=== PATIENT | female | born 1965 | race Caucasian/White ===

== ENCOUNTER → 2016-12-24 | Outpatient (CLI) | payer MEDICAID ==
[~2016-12-24] MED LIST: INSU300I SQ
[2016-12-24 10:46] LABS: HEMATOCRIT 43.4 % (34.6-47.8); HEMOGLOBIN 14.4 g/dL (11.7-16.4); WHITE BLOOD COUNT 7.1 x10^3/uL (3.4-10)
[2016-12-24 10:57] LABS: ASPARTATE AMINO TRANSFERASE 31 U/L (15-37); BLOOD UREA NITROGEN 14 mg/dL (7-18)
== END | disposition home or self-care (01) ==
LOC: STAR 09:42
PROVIDERS: ATTEND Orthopaedic Surgery Orthopaedic Surgery of the Spine
DX: Z01.818 Encounter for other preprocedural examination (principal); M48.02 Spinal stenosis, cervical region; M53.82 Other specified dorsopathies, cervical region; E11.9 Type 2 diabetes mellitus without complications; K21.9 Gastro-esophageal reflux disease without esophagitis
CPT/HCPCS: 36415; 80053; 81003; 85025; 93005

== ENCOUNTER 2016-12-31 09:35 | Observation (INO) | payer MEDICAID ==
[~2016-12-31] VITALS: Ht 162.6 cm; Wt 85.0 kg
[2016-12-31] MEDS ORDERED: LACTATED RINGERS 1,000 ML IV SCH (09:56)
[2016-12-31] MEDS ORDERED: DIAZ2TAB PO (10:32)
[2016-12-31] MEDS ORDERED: OXYC-302 PO (10:32)
[2016-12-31] MEDS ORDERED: ALBU18HF INH (10:32)
[2016-12-31] MEDS ORDERED: NOVOLIN R (10:32)
[2016-12-31] MEDS ORDERED: MIDAZOLAM 1 MG/ML, 2ML ONE ×2 (11:07→15:54)
[2016-12-31] MEDS ORDERED: FENTANYL PF 100 MCG/2ML ONE ×3 (11:07→15:40)
[2016-12-31] MEDS ORDERED: BUPIVACAINE/PF 0.5% ONE (11:18)
[2016-12-31] MEDS ORDERED: TRANEXAMIC ACID 100 MG/ML, 10ML ONE (11:18)
[2016-12-31] MEDS ORDERED: LIDOCAINE/MPF 2%-EPI 1:200K, 20 ML ONE (11:19)
[2016-12-31] MEDS ORDERED: VANCOMYCIN 1,000 MG ONE (11:19)
[2016-12-31] MEDS ORDERED: EPINEPHRINE 1 MG/ML, 1ML ONE (11:19)
[2016-12-31] MEDS ORDERED: THROMBIN 5,000 UNIT VIAL TP ONE (11:19)
[2016-12-31] MEDS ORDERED: BACITRACIN 50,000 UNIT ONE (11:20)
[2016-12-31 11:36] LABS: PATH.CAST-FLAG NOT PRESENT; SPERM-FLAG NOT PRESENT; SRC-FLAG NOT PRESENT; XTAL-FLAG NOT PRESENT; YLC-FLAG NOT PRESENT
[2016-12-31] MEDS ORDERED: DEXAMETHASONE 4 MG/ML, 1ML ONE (12:21)
[2016-12-31] MEDS ORDERED: PROPOFOL 10 MG/ML, 50ML ONE (12:21)
[2016-12-31] MEDS ORDERED: SUCCINYLCHOLINE 20 MG/ML, 10ML ONE (12:21)
[2016-12-31] MEDS ORDERED: PROPOFOL 10 MG/ML, 20ML ONE (12:21)
[2016-12-31] MEDS ORDERED: CEFAZOLIN 1,000 MG ONE (12:21)
[2016-12-31] MEDS ORDERED: ONDANSETRON 2MG/ML, 2ML ONE (12:21)
[2016-12-31] MEDS ORDERED: HYDROmorphone 1 MG/ML, 1ML ONE ×3 (13:16→15:40)
[2016-12-31] MEDS ORDERED: METOPROLOL 1 MG/ML, 5ML IV PRN (15:00)
[2016-12-31] MEDS ORDERED: MIDAZOLAM 1 MG/ML, 2ML IV PRN (15:00)
[2016-12-31] MEDS ORDERED: OXYcodone 5 MG/5 ML ORAL.SOL UDC PO PRN (15:00)
[2016-12-31] MEDS ORDERED: ALBUTEROL/IPRATROPIUM 2.5MG/0.5MG, 3 ML NPPB PRN (15:00)
[2016-12-31] MEDS ORDERED: MEPERIDINE/PF 25MG/0.5ML IVPush PRN (15:00)
[2016-12-31] MEDS ORDERED: ACETAMINOPHEN 325 MG TABLET PO PRN (15:00)
[2016-12-31] MEDS ORDERED: PROMETHAZINE 25 MG/ML, 1ML IV PRN (15:00)
[2016-12-31] MEDS ORDERED: hydrALAzine 20 MG/ML, 1ML IV PRN (15:00)
[2016-12-31] MEDS ORDERED: INSULIN SINGLE DOSE, ER SQ-INSULIN ONE (15:30)
[2016-12-31] MEDS ORDERED: TEMPLATE NON-FORMULARY MED. (Albuterol Sulfate (Ventolin Hfa) 90 MCG) INH SCH (15:30)
[2016-12-31] MEDS ORDERED: INSULIN GLARGINE HUM REC ANLOG 40 UNIT SQ SCH (15:30)
[2016-12-31] MEDS: FENTANYL PF 100 MCG/2ML IV PRN ×2 (15:42→15:50)
[2016-12-31] MEDS ORDERED: DIAZEPAM 5 MG/ML, 2ML IV PRN (16:00)
[2016-12-31] MEDS ORDERED: INSULIN REGULAR 100 UNITS/ML, 3ML VIAL IVPush ONE ×2 (16:00→17:00)
[2016-12-31] MEDS ORDERED: INSULIN SLIDING SCALE MC SCH (16:00)
[2016-12-31] MEDS: HYDROmorphone 1 MG/ML, 1ML IV PRN ×2 (16:00→16:30)
[2016-12-31] MEDS ORDERED: [UNRECOGNIZED DRUG - REMARK] MC SCH (16:00)
[2016-12-31] MEDS ORDERED: [UNRECOGNIZED DRUG - REMARK] MC SCH (16:17)
[2016-12-31] MEDS ORDERED: INSULIN REGULAR 100 UNITS/ML, 3ML VIAL SQ-INSULIN ONE (17:30)
[2016-12-31 18:53] VITALS: BP 110/71
[2016-12-31] MEDS: ONDANSETRON 2MG/ML, 2ML IVPush PRN ×2 (19:12→22:57)
[2016-12-31] MEDS: MORPHINE SULFATE 4 MG/ML, 1ML IVPush PRN ×3 (19:13→22:25)
[2016-12-31] MEDS: DIAZEPAM 2 MG TABLET PO PRN (22:25)
[2016-12-31] MEDS: INSULIN ASPART 100 UNITS/ML, PEN SQ-INSULIN SCH (22:34)
[2016-12-31] MEDS: OXYcodone/APAP 5/325MG TABLET PO PRN (22:59)
[2017-01-01 00:35] VITALS: BP 123/73
[2017-01-01] MEDS: MORPHINE SULFATE 4 MG/ML, 1ML IVPush PRN (01:30)
[2017-01-01] MEDS: OXYcodone/APAP 5/325MG TABLET PO PRN ×6 (02:40→23:50)
[2017-01-01] MEDS: ONDANSETRON 2MG/ML, 2ML IVPush PRN ×4 (02:41→17:11)
[2017-01-01 04:00] VITALS: BP 115/56
[2017-01-01 07:20] VITALS: BP 111/66
[2017-01-01] MEDS: INSULIN ASPART 100 UNITS/ML, PEN SQ-INSULIN SCH ×4 (07:39→21:27)
[2017-01-01 14:35] VITALS: BP 109/69
[2017-01-01] MEDS: INSULIN DETEMIR 100 UNITS/ML, PEN SQ-INSULIN SCH (15:22)
[2017-01-01] MEDS: POLYETHYLENE GLYCOL 17 GM PACKET PO PRN ×2 (15:23→21:27)
[2017-01-01 18:43] VITALS: BP 138/88
[2017-01-01] MEDS: DIAZEPAM 2 MG TABLET PO PRN (19:47)
[2017-01-01 23:21] VITALS: BP 118/71
[2017-01-02] MEDS: INSULIN DETEMIR 100 UNITS/ML, PEN SQ-INSULIN SCH (03:16)
[2017-01-02 03:23] VITALS: BP 113/64
[2017-01-02] MEDS: OXYcodone/APAP 5/325MG TABLET PO PRN ×3 (03:29→11:59)
[2017-01-02] MEDS: INSULIN ASPART 100 UNITS/ML, PEN SQ-INSULIN SCH ×2 (07:53→11:30)
[2017-01-02 07:59] VITALS: BP 146/82
[2017-01-02] MEDS ORDERED: INSU300I SQ (08:02)
[2017-01-02] MEDS: ONDANSETRON 2MG/ML, 2ML IVPush PRN (09:15)
[2017-01-02 13:57] VITALS: BP 105/67
== END 2017-01-02 13:55 | disposition home or self-care (01) ==
LOC: INTOOBSV 09:35 → ORIP 09:35 → 4NOR 17:39
PROVIDERS: ADMIT Orthopaedic Surgery Orthopaedic Surgery of the Spine; ATTEND Orthopaedic Surgery Orthopaedic Surgery of the Spine
DX: M48.02 Spinal stenosis, cervical region (principal); M50.322 Other cervical disc degeneration at C5-C6 level; M50.323 Other cervical disc degeneration at C6-C7 level; K21.9 Gastro-esophageal reflux disease without esophagitis; J44.9 Chronic obstructive pulmonary disease, unspecified; E11.65 Type 2 diabetes mellitus with hyperglycemia; R13.10 Dysphagia, unspecified; F17.210 Nicotine dependence, cigarettes, uncomplicated; Z79.4 Long term (current) use of insulin
CPT/HCPCS: 20931; 20938; 22551; 22552; 22853; 36415; 71010; 72040; 81001; 82962; 86850; 86900; 96372; 96374; 96375; 96376; C1713; C1762; G0378; J0171; J0330; J0690; J1100; J1170; J1815; J2405; J2704; J3010; J3360; J3370; J3490; J7120; 96365; J2250